=== PATIENT | male | born 1950 | race Caucasian/White ===

== ENCOUNTER → 2017-07-06 16:10 | Outpatient (CLI) | payer MEDICARE, OTHER, SELFPAY ==
[2017-07-06 17:22] LABS: Hematocrit 45.4 % (40-54); Hemoglobin 15.2 g/dl (13.0-16.5); Mean Corp Hgb Conc 33.5 g/gl (32-36); Mean Corpuscular Hgb 29.7 pg (27.0-32.0); Mean Corpuscular Volume 88.7 fL (80-94); Mean Platelet Vol. 10.5 fl (6.2-12.0); Platelet Count 224 K/mm3 (150-450); RBC Distribution Width CV 13.3 % (11.6-14.6); RBC Distribution Width SD 42.7 fl (35.1-43.9); Red Blood Count 5.12 M/mm3 (4.6-6.2); White Blood Count 12.8 K/mm3 (4.4-11.0)
[2017-07-06 17:23] LABS: Scan Indicated on CBC? Y/N NO
[2017-07-06 18:00] LABS: Anion Gap 6 (5-15); BUN 15 mg/dL (7-18); Calcium,Total 8.9 mg/dL (8.5-10.1); Chloride 104 mmol/L (98-107); EST Glomerular Filtration Rate 79 mL/min (>60); Est Glom Filt Rate - Afr Amer 95 mL/min (>60); Glucose 95 mg/dL (74-106); Sodium Level 140 mmol/L (136-145)
== END ==
PROVIDERS: Family Provider Internal Medicine; PCP Internal Medicine; Visit Provider Physician Assistant
DX: Z01.818 Encounter for other preprocedural examination (principal); I10 Essential (primary) hypertension
CPT/HCPCS: 36415; 80048; 85027

== ENCOUNTER → 2017-07-13 11:53 | Outpatient (CLI) | payer MEDICARE, OTHER, SELFPAY ==
--- NOTE | 2017-07-13 11:56 | EKG12_ITS ---
Test Reason : PRE OP Blood Pressure : / mmHG Vent. Rate : 060 BPM Atrial Rate : 060 BPM P-R Int : 220 ms QRS Dur : 090 ms QT Int : 386 ms P-R-T Axes : 059 -29 008 degrees QTc Int : 386 ms Sinus rhythm with 1st degree A-V block Otherwise normal ECG Confirmed by KWESI CHILDRESS ([id number]), photograph editor YONY MUKHERJEE ([id number]) on 07/14/2017 10:16:58 AM Referred By: YAZ Confirmed By:KWESI CHILDRESS
--- NOTE | 2017-07-13 11:57 | RAD_ITS ---
XR Chest 2 Views INDICATION: PRE OP COMPARISON: None TECHNIQUE: 2 views of the chest FINDINGS: The heart size and pulmonary vascularity are within normal limits. Atelectatic changes are seen at the lung bases, lungs are otherwise clear. Postsurgical hardware is noted at the cervical spine, osseous structures are otherwise unremarkable. RAD/Chest PA and Lateral IMPRESSION: Mild bibasilar atelectasis, lungs appear otherwise clear. at 2121 Reported and signed by: Doris Rajput MD Electronically Signed: Doris Rajput MD at 20:20 EST Tel , Service support ,
== END ==
PROVIDERS: Family Provider Internal Medicine; PCP Internal Medicine; Visit Provider Orthopaedic Surgery
DX: Z01.810 Encounter for preprocedural cardiovascular examination (principal); Z01.811 Encounter for preprocedural respiratory examination
CPT/HCPCS: 71046; 93005

== ENCOUNTER → 2017-08-20 11:56 | Outpatient (CLI) | payer MEDICARE, OTHER, SELFPAY ==
--- NOTE | 2017-08-20 12:06 | RAD_ITS ---
STUDY: X-RAY - CERVICAL SPINE REASON FOR EXAM: Male, 66 years old. Chronic neck pain. TECHNIQUE: 7 view(s) of the cervical spine were obtained. COMPARISON: None FINDINGS: Normal anterior atlantoaxial articulation. Normal odontoid process. Normal cervical lordosis. There is anterior fusion at C5-C6 with intervertebral prosthetic disc placement. There is intervertebral disc space narrowing at C4-5 and C7-T1 with osteophyte formation. There is diffuse uncovertebral and facet sclerosis. Normal visualized intervertebral neuroforamina. The soft tissue structures are unremarkable. RAD/Cerv Spine 4 or 5 Views IMPRESSION: Post-surgical changes at C5-6. Disc degeneration at C4-5 and C6-7. Diffuse mild cervical spondylosis. Electronically Signed: Kolby Steve MD at 16:23 EDT , Service support ,
--- NOTE | 2017-08-20 12:07 | RAD_ITS ---
STUDY: X-RAY - LUMBAR SPINE REASON FOR EXAM: Male, 66 years old. Chronic back pain. TECHNIQUE: 4 view(s) of the lumbar spine were obtained. COMPARISON: None FINDINGS: There is mild generalized osteopenia. Normal lumbar lordosis. There is no substantial scoliosis. There is a normal alignment of the vertebrae. Normal vertebral bodies and endplates. There is intervertebral disc space narrowing at L2-3, L3-4, L4-5 and L5-S1 with osteophyte formation most marked at L3-4. There is vacuum phenomenon at L4-5 and L5-S1. There is diffuse facet sclerosis. There is marked vascular calcification. RAD/L/S Spine Min 4 Views IMPRESSION: Osteopenia with lower lumbar spondylosis as described. No acute pathology. Electronically Signed: Kolby Steve MD at 16:25 EDT , Service support ,
== END ==
PROVIDERS: Family Provider Internal Medicine; PCP Internal Medicine; Visit Provider Anesthesiology Pain Medicine
DX: M54.2 Cervicalgia (principal); M54.9 Dorsalgia, unspecified; G89.29 Other chronic pain
CPT/HCPCS: 72050; 72110

== ENCOUNTER 2020-07-24 10:22 | Outpatient (RCR) | payer MEDICARE, OTHER, SELFPAY ==
[2020-07-24] MEDS: COVID-19 VACC, MRNA(PFIZER)/PF 30 MCG/0.3 ML SYRINGE IM (16:56)
[2020-08-14] MEDS: COVID-19 VACC, MRNA(PFIZER)/PF 30 MCG/0.3 ML SYRINGE IM (16:24)
== END 2020-10-28 23:59 ==
LOC: IMMUN 10:22
PROVIDERS: Visit Provider Family Medicine
DX: Z23 Encounter for immunization (principal)
CPT/HCPCS: 0001A; 0002A; 91300

== ENCOUNTER → 2021-01-09 10:46 | Outpatient (CLI) | payer MEDICARE, OTHER, SELFPAY ==
--- NOTE | 2021-01-09 11:20 | EKG12_ITS ---
Test Reason : PRE OP Blood Pressure : / mmHG Vent. Rate : 086 BPM Atrial Rate : 086 BPM P-R Int : 346 ms QRS Dur : 084 ms QT Int : 356 ms P-R-T Axes : 000 -31 076 degrees QTc Int : 426 ms Atrial-paced rhythm with prolonged AV conduction Left axis deviation Septal infarct , age undetermined Abnormal ECG Confirmed by LOUIE LI, NOAH ([id number]), editor dictionary MARIO LEVIN ([id number]) on 01/12/2021 11:35:55 AM Referred By: Emelyn Molina Confirmed By:NOAH PALMA MD
--- NOTE | 2021-01-09 11:30 | RAD_ITS ---
STUDY: X-RAY CHEST REASON FOR EXAM: Male, 70 years old. Preoperative evaluation. TECHNIQUE: Frontal and lateral views of the chest. COMPARISON: 07/13/2017. FINDINGS: Stable mild hyperexpansion. Scarring of the left base unchanged. There is no demonstrated pleural abnormality. 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 Stable left atrial appendage closure device. Normal mediastinum and michelle. Normal visualized pulmonary arteries. Normal visualized aortic arch and descending thoracic aorta. Normal visualized thoracic spine. Normal visualized ribs, clavicles, and shoulders. There is no demonstrated abnormality of the visualized soft tissue structures of the upper abdomen. RAD/Chest PA and Lateral IMPRESSION: Stable chest with no acute or active cardiopulmonary disease. Electronically Signed: Kolby Steve MD at 13:31 EDT , Service support ,
[2021-01-09 11:32] LABS: Absolute Lymphocyte Count 1.72 X10^3/uL (0.83-4.51); Basophil# 0.11 X10^3/uL; Basophil% 1.1 % (0-1); Eosinophil# 0.63 X10^3/uL; Eosinophils% 6.1 % (0-5); Hemoglobin 14.6 g/dL (13.0-16.5); Lymphocyte # 1.72 X10^3/ul (0.83-4.51); Lymphocyte % 16.7 % (19-41); Mean Corp Hgb Conc 32.4 g/dL (32-36); Mean Corpuscular Hgb 29.3 pg (27.0-32.0); Mean Corpuscular Volume 90.2 fL (80-94); Mean Platelet Vol. 9.7 fl (6.2-12.0); Monocyte# 0.84 X10^3/uL; Monocyte% 8.1 % (0-10); NRBC Flagged by Analyzer 0 % (0-5); Neutrophil % 67.7 % (47-70); Platelet Count 209 K/mm3 (150-450); RBC Distribution Width CV 13.7 % (11.6-14.6); RBC Distribution Width SD 45.1 fl (35.1-43.9); Red Blood Count 4.99 M/mm3 (4.6-6.2); White Blood Count 10.3 K/mm3 (4.4-11.0)
[2021-01-09 11:56] LABS: Anion Gap 2 (5-15); BUN 10 mg/dL (7-18); BUN/Creat Ratio 10.8 RATIO (10-20); Calcium,Total 9.2 mg/dL (8.5-10.1); Chloride 105 mmol/L (98-107); Creatinine, Serum 0.93 mg/dL (0.70-1.30); EST Glomerular Filtration Rate 85 mL/min (>60); Est Glom Filt Rate - Afr Amer 103 mL/min (>60); Glucose 110 mg/dL (74-106); Sodium Level 138 mmol/L (136-145)
== END ==
PROVIDERS: Referring Provider Physician Assistant Surgical; Visit Provider Physician Assistant Surgical
DX: Z01.818 Encounter for other preprocedural examination (principal); Z01.810 Encounter for preprocedural cardiovascular examination; Z01.811 Encounter for preprocedural respiratory examination
CPT/HCPCS: 36415; 71046; 80048; 85025; 93005